=== PATIENT | male | born 1975 | race Caucasian/White ===

== ENCOUNTER 2018-06-04 07:45 | Emergency (ER) | payer OTHER ==
[~2018-06-04] VITALS: Ht 175.3 cm; Wt 115.9 kg
[~2018-06-04 07:45] MED LIST: No home meds; VENL75CA PO
[2018-06-04] MEDS ORDERED: ACETAMINOPHEN 500 MG TAB PO ONE (08:30)
[2018-06-04] MEDS ORDERED: KETOROLAC 30 MG/ML VIAL (J1885) IM ONE (08:30)
[2018-06-04 09:25] LABS: BLOOD UREA NITROGEN 15 MG/DL (7-18); CALCIUM LEVEL 9.4 MG/DL (8.5-10.1); CARBON DIOXIDE LEVEL 27 MEQ/L (21-32); CHLORIDE LEVEL 102 MEQ/L (98-107); CREATININE FOR GFR 0.97 MG/DL (0.70-1.30); GLOMERULAR FILTRATION RATE > 60.0 (>60); GLUCOSE, FASTING 117 MG/DL (70-100); POTASSIUM SERUM 3.6 MEQ/L (3.5-5.1); SODIUM LEVEL 137 MEQ/L (136-145)
[2018-06-04] MEDS ORDERED: CHLO125TA PO (09:27)
[2018-06-04 09:35] VITALS: BP 180/130
--- NOTE | 2018-06-04 20:25 | ECGEPIP ---
Stationary ECG Study [facility] - ED Test Date: 2018-06-04 Pat Name: PATTI KAUR Department: Room: - Gender: M [employer]: VIKASH : 1975 Requested By: KENRICK Angela PA-C Order Number: [id number] Reading MD: Isiah Platt Measurements Intervals [place] Rate: 80 P: 34 DE: 151 QRS: 60 QRSD: 109 T: 41 QT: 380 QTc: 440 Interpretive Statements SINUS RHYTHM Intraventricular conduction delay Electronically Signed On 06-04-2018 20:24:35 EDT by Isiah Platt
== END 2018-06-04 09:39 | disposition home or self-care (01) ==
LOC: M ED 07:45
DX: K08.89 Other specified disorders of teeth and supporting structures (principal); I10 Essential (primary) hypertension

== ENCOUNTER 2020-11-26 17:17 | Emergency (ER) | payer OTHER ==
[~2020-11-26] VITALS: Ht 175.3 cm; Wt 117.3 kg
[~2020-11-26 17:17] MED LIST changes: +CHLO125TA PO
[2020-11-26 18:00] LABS: BASO # 0.2 10^3/uL (0.0-0.2); BASO % 1.7 % (0.0-1.0); EOS # 0.1 10^3/uL (0.0-0.5); EOS % 1.2 % (0.0-3.0); HEMATOCRIT 47.2 % (42.0-52.0); HEMOGLOBIN 16.8 g/dl (13.5-17.5); LYMPH # 2.4 10^3/uL (1.5-5.0); LYMPH % 28.1 % (24.0-44.0); MEAN CORPUSCULAR HEMOGLOBIN 29.3 pg (27.0-33.0); MEAN CORPUSCULAR HGB CONC 35.6 g/dl (32.0-36.5); MEAN CORPUSCULAR VOLUME 82.4 fl (80.0-96.0); MONO # 0.7 10^3/uL (0.0-0.8); MONO % 7.9 % (2.0-8.0); NEUTROPHILS # 5.2 10^3/uL (1.5-8.5); NEUTROPHILS % 60.4 % (36.0-66.0); PLATELET COUNT, AUTOMATED 238 10^3/uL (150-450); RED BLOOD COUNT 5.73 10^6/uL (4.30-6.10); WHITE BLOOD COUNT 8.7 10^3/uL (4.0-10.0)
[2020-11-26] MEDS ORDERED: ASPI1TAB22 PO (18:09)
[2020-11-26] MEDS ORDERED: ACET65SU PR (18:09)
[2020-11-26 18:23] LABS: ALBUMIN 3.9 GM/DL (3.2-5.2); ALT/SGPT 62 U/L (12-78); BILIRUBIN,DIRECT 0.2 MG/DL (0.0-0.2); BLOOD UREA NITROGEN 12 MG/DL (7-18); CALCIUM LEVEL 8.8 MG/DL (8.5-10.1); CARBON DIOXIDE LEVEL 28 MEQ/L (21-32); CHLORIDE LEVEL 103 MEQ/L (98-107); GLOMERULAR FILTRATION RATE > 60.0 (>60); GLUCOSE, FASTING 158 MG/DL (70-100); POTASSIUM SERUM 3.5 MEQ/L (3.5-5.1); SODIUM LEVEL 137 MEQ/L (136-145); TOTAL PROTEIN 7.3 GM/DL (6.4-8.2)
[2020-11-26] MEDS ORDERED: LOSARTAN 50MG TABLET PO ONE (18:30)
[2020-11-26] MEDS ORDERED: amLODIPine 5 MG TAB PO ONE (18:30)
--- NOTE | 2020-11-26 18:39 | REP ---
INDICATION: hypertensive urgency. COMPARISON: None. TECHNIQUE: Upright AP portable exam. Single-view. FINDINGS: EKG electrodes are seen. The lungs are well inflated and clear. The pleural angles are sharp. Cardiomediastinal silhouette is unremarkable. The pulmonary vasculature is not increased. No acute bony abnormality is seen. IMPRESSION: No active disease. <Electronically signed by Alex Walden > 11/26/20 [id number]
[2020-11-26] MEDS ORDERED: AMLO1TAB24 PO (18:48)
[2020-11-26] MEDS ORDERED: LOSA100T50 PO (18:48)
[2020-11-26 19:14] VITALS: BP 190/106
[2020-11-26 20:28] VITALS: BP 200/100
--- NOTE | 2020-11-27 05:03 | ECGEPIP ---
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
== END 2020-11-26 21:06 | disposition home or self-care (01) ==
LOC: M ED 17:17
DX: I10 Essential (primary) hypertension (principal); F33.9 Major depressive disorder, recurrent, unspecified; Z79.899 Other long term (current) drug therapy; Z79.82 Long term (current) use of aspirin

== ENCOUNTER → 2021-07-12 | Outpatient (CLI) | payer OTHER ==
[~2021-07-12] MED LIST changes: +ACET65SU PR; +AMLO1TAB24 PO; +ASPI1TAB22 PO; +LOSA100T45 PO
== END ==
LOC: M SLEEP 20:00
PROVIDERS: ATTEND Nurse Practitioner Family
DX: G47.33 Obstructive sleep apnea (adult) (pediatric) (principal)

== ENCOUNTER 2022-08-21 14:05 | Emergency (ER) | payer OTHER ==
[~2022-08-21] VITALS: Ht 175.3 cm; Wt 103.2 kg
[~2022-08-21 14:05] MED LIST changes: -LOSA100T45 PO; +LOSA100T46 PO
[2022-08-21] MEDS ORDERED: AMLO1TAB25 PO (14:34)
[2022-08-21] MEDS ORDERED: LOSA100T46 PO (14:34)
[2022-08-21] MEDS ORDERED: ASPI81CH33 PO (14:34)
[2022-08-21] MEDS ORDERED: D 1010002 PO (14:34)
[2022-08-21] MEDS ORDERED: METO1TAB87 PO ×2 (14:34→18:28)
[2022-08-21] MEDS ORDERED: ATOR1TAB21 PO (14:34)
[2022-08-21] MEDS ORDERED: NS 1,000 ML IV ONE (14:40)
[2022-08-21 14:55] LABS: VENOUS BASE EXCESS -1.3 (-2.0-2.0); VENOUS HCO3 23.1 MMOL/L (23.0-27.0); VENOUS O2 SATURATION 89.8 % (60.0-80.0); VENOUS PARTIAL PRESSURE CO2 38.1 mmHg (38.0-50.0); VENOUS PH 7.401 UNITS (7.330-7.430); VENOUS STANDARD HCO3 23.2 MMOL/L; VENOUS TOTAL CO2 24.3 MMOL/L (24.0-28.0)
[2022-08-21 15:09] LABS: BASO # 0.1 10^3/uL (0.0-0.2); BASO % 1.3 % (0.0-1.0); EOS # 0.1 10^3/uL (0.0-0.5); EOS % 0.9 % (0.0-3.0); HEMATOCRIT 47.4 % (42.0-52.0); HEMOGLOBIN 16.4 g/dl (13.5-17.5); LYMPH # 3.3 10^3/uL (1.5-5.0); LYMPH % 34.3 % (24.0-44.0); MEAN CORPUSCULAR HEMOGLOBIN 28.8 pg (27.0-33.0); MEAN CORPUSCULAR HGB CONC 34.6 g/dl (32.0-36.5); MEAN CORPUSCULAR VOLUME 83.2 fl (80.0-96.0); MONO # 0.6 10^3/uL (0.0-0.8); MONO % 6.3 % (2.0-8.0); NEUTROPHILS # 5.5 10^3/uL (1.5-8.5); NEUTROPHILS % 56.8 % (36.0-66.0); PLATELET COUNT, AUTOMATED 294 10^3/uL (150-450); WHITE BLOOD COUNT 9.7 10^3/uL (4.0-10.0)
[2022-08-21] MEDS ORDERED: METOPROLOL TART 50 MG TAB PO ONE (15:20)
[2022-08-21 15:32] LABS: HEMOGLOBIN A1c > 14.0 % (4.0-6.0)
[2022-08-21] MEDS ORDERED: HumuLIN R (REGULAR) INSULIN (NovoLIN R) **100U/ML** PER UNIT IV ONE (15:45)
[2022-08-21] MEDS ORDERED: LANTINJ4 SC (18:28)
[2022-08-21] MEDS ORDERED: FREE1KIT5 XX (18:28)
[2022-08-21] MEDS ORDERED: METF500T13 PO (18:28)
[2022-08-21] MEDS ORDERED: FREE1MIS32 XX (18:28)
[2022-08-21 18:51] VITALS: BP 156/94; TEMP 98.2; O2SAT 98
== END 2022-08-21 18:53 | disposition home or self-care (01) ==
LOC: M ED 14:05
DX: E11.65 Type 2 diabetes mellitus with hyperglycemia (principal); I10 Essential (primary) hypertension; E78.5 Hyperlipidemia, unspecified; F43.10 Post-traumatic stress disorder, unspecified; Z79.82 Long term (current) use of aspirin; Z79.899 Other long term (current) drug therapy
CPT/HCPCS: 80047; 82010; 82803; 83036; 85025; 93005; 96374; 99284; J1815